=== PATIENT | female | born 1985 | race Caucasian/White ===

== ENCOUNTER 2021-01-18 00:26 | Emergency (ER) | payer SELFPAY ==
[~2021-01-18] VITALS: Ht 160 cm; Wt 63.5 kg
[~2021-01-18 00:26] MED LIST: BIRTH CONTROL
--- NOTE | 2021-01-18 00:40 | NUR ---
PT [id number] FROM OUTSIDE [employer]T [employer]ILDING. PT APPEARS INTOXICATED. PT UNABLE TO ANSWER QUESTIONS, NOT IN RESPIRATORY DISTRESS, VSS. PT CONNECTED TO THE MONITOR AND POX.
--- NOTE | 2021-01-18 01:51 | NUR ---
PT AMBULATORY TO RESTROOM.
--- NOTE | 2021-01-18 02:26 | NUR ---
PT AMBULATORY W/ STEADY GAIT
--- NOTE | 2021-01-18 02:38 | NUR ---
Patient discharged to home w/ boyfriend in stable condition. Written and verbal after care instructions given. Patient verbalizes understanding of instruction. Pt. ambulatory with a steady gait
[2021-01-18 02:39] VITALS: BP 93/49
== END 2021-01-18 02:40 | disposition home or self-care (01) ==
LOC: ER 00:32
DX: F10.129 Alcohol abuse with intoxication, unspecified (principal); R41.82 Altered mental status, unspecified; Y90.9 Presence of alcohol in blood, level not specified
CPT/HCPCS: 70450-TC; 82962-TC